=== PATIENT | male | born 1985 | race American Indian/Alaskan Native ===

== ENCOUNTER 2018-10-05 21:50 | Emergency (ER) | payer SELFPAY ==
--- NOTE | 2018-10-05 22:01 | Emergency Department Report ---
Blank Doc - Documentation Documentation: This is a 33-year-old male that presents with left ankle pain and swelling. This initial assessment/diagnostic orders/clinical plan/treatment(s) is/are subject to change based on patient's health status, clinical progression and re- assessment by fellow clinical providers in the ED. Further treatment and workup at subsequent clinical providers discretion. Patient/guardians urged not to elope from the ED as their condition may be serious if not clinically assessed and managed. Initial orders include: 1- Patient sent to [facility] for further evaluation and treatment 2- xray
[2018-10-05 22:04] VITALS: BP 156/104
--- NOTE | 2018-10-05 22:43 | XRay Report ---
PROCEDURE: XR ANKLE 3+V LT TECHNIQUE: Frontal, lateral, mortise views left ankle HISTORY: left ankle pain COMPARISONS: None FINDINGS: There is no evidence of fracture or subluxation. The mortise joint is maintained. The soft tissues are notable for the appearance of diffuse edema in the lower leg and ankle. IMPRESSION: 1. No evidence of fracture or subluxation. This document is electronically signed by Krupa Mora MD., October 05 2018 10:41:09 PM ET
--- NOTE | 2018-10-05 22:56 | Emergency Department Report ---
ED Lower Extremity HPI - General Chief Complaint: Extremity Injury, Lower Stated Complaint: LEG SWELLING Time Seen by Provider: 10/05/18 22:01 Source: patient Mode of arrival: Ambulatory Limitations: No Limitations - History of Present Illness Initial Comments: Patient is a -[place] male who presents with left ankle pain with swelling 1 week this is a recurrent problem last 2 years this is worse on his feet 8-10 hours a day patient denies pain at this time range of motion is intact there is no bleeding no consideration of answers history of diabetes peripheral vascular disease patient denies injury fall or trauma MD Complaint: ankle injury Onset/Timin -: week(s), unknown (chronic for past 2 yrs ) Injury: Ankle: Left Type of Injury: unknown Place: home Severity: moderate Severity scale (0 -10): 5 Improves With: rest Worsens With: weight bearing, movement, palpation, other (prolonged standing) Associated Symptoms: swelling, ambulatory. denies: snap/pop sensation, numbness, tingling - Related Data Previous Rx's Medication Instructions Recorded Last Taken Type Ibuprofen [Motrin 800 MG tab] 800 mg PO Q8HR PRN #30 tablet 10/05/18 Unknown Rx predniSONE [Deltasone] 40 mg PO QDAY 5 Days #10 tab 10/05/18 Unknown Rx Allergies Allergy/AdvReac Type Severity Reaction Status Date / Time theophylline Allergy Unknown Verified 03/15/15 13:00 slo-bid Allergy Unknown Uncoded 10/05/18 21:57 ED Review of Systems ROS: Stated complaint: LEG SWELLING Other details as noted in HPI Constitutional: denies: chills, fever Eyes: denies: eye pain, eye discharge, vision change ENT: denies: ear pain, throat pain Respiratory: denies: cough, shortness of breath, wheezing Cardiovascular: denies: chest pain, palpitations Endocrine: no symptoms reported Gastrointestinal: denies: abdominal pain, nausea, diarrhea Genitourinary: denies: urgency, dysuria Musculoskeletal: joint swelling, arthralgia Skin: denies: rash, lesions Neurological: denies: headache, weakness, paresthesias Psychiatric: denies: anxiety, depression Hematological/Lymphatic: denies: easy bleeding, easy bruising ED Past Medical Hx - Past Medical History Previous Medical History?: Yes Hx [facility]: Yes [facility] - Surgical History Past Surgical History?: Yes Additional Surgical History: Tonsillectomy and adnoids removed, right toe surgery - Social History Smoking Status: Current Every Day Smoker Substance Use Type: Marijuana - Medications Home Medications: Home Medications Medication Instructions Recorded Confirmed Last Taken Type Ibuprofen [Motrin 800 MG tab] 800 mg PO Q8HR PRN #30 tablet 10/05/18 Unknown Rx predniSONE [Deltasone] 40 mg PO QDAY 5 Days #10 tab 10/05/18 Unknown Rx ED Physical Exam - General Limitations: No Limitations General appearance: alert, in no apparent distress - Head Head exam: Present: atraumatic, normocephalic - Eye Eye exam: Present: normal appearance - ENT ENT exam: Present: mucous membranes moist - Neck Neck exam: Present: normal inspection - Respiratory Respiratory exam: Present: normal lung sounds bilaterally. Absent: respiratory distress, wheezes, rhonchi, stridor, chest wall tenderness - Cardiovascular Cardiovascular Exam: Present: regular rate, normal rhythm. Absent: systolic murmur, diastolic murmur, rubs, gallop - GI/Abdominal GI/Abdominal exam: Present: soft, normal bowel sounds. Absent: distended, tenderness, bruit, hernia - Rectal Rectal exam: Present: deferred - Extremities Exam Extremities exam: Present: normal inspection, full ROM, normal capillary refill, joint swelling (left ankle foot ). Absent: tenderness, pedal edema, calf tenderness - Expanded Lower Extremity Exam Right Ankle exam: Present: full ROM, tenderness, swelling. Absent: abrasion, laceration, ecchymosis, deformity, crepidus, dislocation, erythema, anterior draw sign Foot/Toe exam: Present: full ROM, swelling. Absent: tenderness, abrasion, laceration, ecchymosis, deformity, crepidus, dislocation, erythema, amputation, puncture wound, foreign body, calcaneal tenderness, tenderness at base of 5th metatarsal, nail avulsion, subungual hematoma Neuro vascular tendon exam: Absent: pulse deficit, motor deficit, sensory deficit, tendon deficit, foot drop Gait: Positive: observed and normal - Back Exam Back exam: Present: normal inspection, full ROM, tenderness. Absent: CVA tenderness (R), CVA tenderness (L), muscle spasm, paraspinal tenderness, vertebral tenderness, rash noted - Neurological Exam Neurological exam: Present: alert, oriented X3, CN II-XII intact, normal gait, reflexes normal. Absent: motor sensory deficit - Psychiatric Psychiatric exam: Present: normal affect - Skin Skin exam: Present: warm, dry, intact, normal color. 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 Critical care attestation.: If time is entered above; I have spent that time in minutes in the direct care of this critically ill patient, excluding procedure time. ED Disposition Clinical Impression: Arthralgia of ankle, left, Musculoskeletal pain of left lower extremity Disposition: DC-01 TO HOME OR SELFCARE Is pt being admited?: No Does the pt Need Aspirin: No Condition: Stable Instructions: Arthralgia (ED) Prescriptions: predniSONE [Deltasone] 40 mg PO QDAY 5 Days #10 tab Ibuprofen [Motrin 800 MG tab] 800 mg PO Q8HR PRN #30 tablet PRN Reason: pain Referrals: ERNIE LOPEZ MD [Staff Physician] - 3-5 Days LOLA JEFFRIES MD [Staff Physician] - 3-5 Days Forms: Work/School Release Form(ED) Time of Disposition: 23:05
[2018-10-05] MEDS ORDERED: IBUPROFEN PO ONE (22:59)
[2018-10-05] MEDS ORDERED: DELTASONE PO ONE (22:59)
== END 2018-10-05 23:20 | disposition home or self-care (01) ==
LOC: ED 21:50
DX: M25.572 Pain in left ankle and joints of left foot (principal); M79.605 Pain in left leg; J45.909 Unspecified asthma, uncomplicated; F17.200 Nicotine dependence, unspecified, uncomplicated; F12.10 Cannabis abuse, uncomplicated; Z90.89 Acquired absence of other organs; Z88.8 Allergy status to other drugs, medicaments and biological substances
CPT/HCPCS: 73610; 99283; J7512

== ENCOUNTER 2019-01-27 01:49 | Emergency (ER) | payer SELFPAY ==
[2019-01-27 01:59] VITALS: BP 140/92
--- NOTE | 2019-01-27 03:50 | Emergency Department Report ---
- General Chief Complaint: Skin/Abscess/Foreign Body Stated Complaint: LOWER BACK PAIN Time Seen by Provider: 01/27/19 03:04 Source: patient Mode of arrival: Wheelchair Limitations: No Limitations - History of Present Illness Initial Comments: Patient is a 33-year-old male presents to emergency room with complaints of an abscess of the tailbone that began 3 days ago. He denies any drainage, fever, nausea, vomiting, any other symptoms. He states that he has had this recurrently and had I&D performed 3 years ago and also in 2010. Patient denies any past medical history or history of diabetes. he states he has an allergy to theophylline. - Related Data Previous Rx's Medication Instructions Recorded Last Taken Type Ibuprofen [Motrin 800 MG tab] 800 mg PO Q8HR PRN #30 tablet 10/05/18 Unknown Rx predniSONE [Deltasone] 40 mg PO QDAY 5 Days #10 tab 10/05/18 Unknown Rx Acetaminophen/Codeine [Tylenol 1 tab PO Q6H PRN #7 tab 01/27/19 Unknown Rx /Codeine # 3 tab] Clindamycin [Clindamycin CAP] 450 mg PO TID 7 Days #63 capsule 01/27/19 Unknown Rx Ibuprofen [Motrin 800 MG tab] 800 mg PO Q8HR PRN #14 tablet 01/27/19 Unknown Rx Allergies Allergy/AdvReac Type Severity Reaction Status Date / Time theophylline Allergy Unknown Verified 03/15/15 13:00 slo-bid Allergy Unknown Uncoded 10/05/18 21:57 ED Review of Systems ROS: Stated complaint: LOWER BACK PAIN Other details as noted in HPI Comment: All other systems reviewed and negative ED Past Medical Hx - Past Medical History Previous Medical History?: Yes [facility]x [facility]: [facility] ( [facility] - Surgical History Past Surgical History?: Yes Additional Surgical History: Tonsillectomy and adnoids removed, right toe surgery - Social History Smoking Status: Current Every Day Smoker Substance Use Type: Marijuana - Medications Home Medications: Home Medications Medication Instructions Recorded Confirmed Last Taken Type Ibuprofen [Motrin 800 MG tab] 800 mg PO Q8HR PRN #30 tablet 10/05/18 Unknown Rx predniSONE [Deltasone] 40 mg PO QDAY 5 Days #10 tab 10/05/18 Unknown Rx Acetaminophen/Codeine [Tylenol 1 tab PO Q6H PRN #7 tab 01/27/19 Unknown Rx /Codeine # 3 tab] Clindamycin [Clindamycin CAP] 450 mg PO TID 7 Days #63 capsule 01/27/19 Unknown Rx Ibuprofen [Motrin 800 MG tab] 800 mg PO Q8HR PRN #14 tablet 01/27/19 Unknown Rx ED Physical Exam - General Limitations: No Limitations General appearance: alert, in no apparent distress - Head Head exam: Present: atraumatic, normocephalic - Eye Eye exam: Present: normal appearance - ENT ENT exam: Present: mucous membranes moist - Neurological Exam Neurological exam: Present: alert, oriented X3 - Psychiatric Psychiatric exam: Present: normal affect, normal mood - Skin Skin exam: Present: warm, dry, other (induration and mild erythema present to the top of the gluteal cleft and to the proximal portion of the left gluteus approximately a 5 cm area of induration, no fluctuance, no increased warmth, no drainage, does not come to a head) ED Course Vital Signs 01/27/19 01:58 Temperature 99.5 F Pulse Rate 126 H Respiratory 20 Rate Blood Pressure 140/92 [Left] O2 Sat by Pulse 100 Oximetry ED Medical Decision Making - Medical Decision Making Patient is a 33-year-old male presents to emergency room with complaints of an abscess of the tailbone that began 3 days ago. He denies any drainage, fever, nausea, vomiting, any other symptoms. He states that he has had this recurrently and had I&D performed 3 years ago and also in 2009. Patient denies any past medical history or history of diabetes. he states he has an allergy to theophylline. on exam: induration and mild erythema present to the top of the gluteal cleft and to the proximal portion of the left gluteus approximately a 5 cm area of induration, no fluctuance, no increased warmth, no drainage, does not come to a head. no drainable abscess at this time, appears to be cellulitis with early abscess formation. pt given clindamycin while in the ED. given prescription for clindamycin, tylenol with codeine and ibuprofen. advised pt to please take medication as prescribed to completion. do not drive or operate heavy machinery while taking pain medication. please use warm compresses 3 times a day. follow up with a general surgeon in the next 3 days. Return to the emergency room for any new or worsening symptoms or any worsening signs of infection including but not limited to increasing redness and increasing swelling increase warmth, fever, chills. If antibiotics are not working may need to have an incision and drainage procedure in the emergency department. discussed the importance for pt to have area reexamined. referred to general surgery due to recurrent abscesses. Critical care attestation.: If time is entered above; I have spent that time in minutes in the direct care of this critically ill patient, excluding procedure time. ED Disposition Clinical Impression: Abscess Cellulitis Qualifiers: Site of cellulitis: buttock Qualified Code(s): L03.317 - Cellulitis of buttock Disposition: DC- TO HOME OR SELFCARE Is pt being admited?: No Does the pt Need Aspirin: No Condition: Stable Instructions: Cellulitis (ED), Abscess (ED) Additional Instructions: Please take medication as prescribed to completion. do not drive or operate heavy machinery while taking pain medication. please use warm compresses 3 times a day. follow up with a general surgeon in the next 3 days. Return to the emergency room for any new or worsening symptoms or any worsening signs of infection including but not limited to increasing redness and increasing swelling increase warmth, fever, chills. If antibiotics are not working may need to have an incision and drainage procedure in the emergency department. Prescriptions: Clindamycin [Clindamycin CAP] 450 mg PO TID 7 Days #63 capsule Ibuprofen [Motrin 800 MG tab] 800 mg PO Q8HR PRN #14 tablet PRN Reason: Pain, Moderate (4-6) Acetaminophen/Codeine [Tylenol /Codeine # 3 tab] 1 tab PO Q6H PRN #7 tab PRN Reason: Pain , Severe (7-10) Referrals: LEONA LOCO DO [Staff Physician] - 3-5 Days Time of Disposition: 03:58 Print Language: SINGAPORE[place]
[2019-01-27] MEDS ORDERED: CLINDAMYCIN 150 MG/ML VIAL 6 ML IM ONE (03:56)
[2019-01-27] MEDS ORDERED: IBUPROFEN 800 MG TAB PO ONE (04:14)
[2019-01-27] MEDS ORDERED: IBUPROFEN 800 MG TAB ONE (04:17)
== END 2019-01-27 04:22 | disposition home or self-care (01) ==
LOC: ED 01:49
DX: J45.909 Unspecified asthma, uncomplicated (principal); F17.200 Nicotine dependence, unspecified, uncomplicated; F12.10 Cannabis abuse, uncomplicated; Z88.8 Allergy status to other drugs, medicaments and biological substances
CPT/HCPCS: 96372; 99282